=== PATIENT | male | born 1955 | race Hispanic/Latino ===

== ENCOUNTER 2023-12-27 05:54 | Day surgery (SDC) | payer MEDICARE ==
[2023-12-25 12:11] LABS: BASOPHILS # (AUTO) 0.01 K/uL (0.00-0.20); BASOPHILS % (AUTO) 0.2 % (0.0-5.0); EOSINOPHILS # (AUTO) 0.07 K/uL (0.00-0.70); EOSINOPHILS % (AUTO) 1.5 % (0.0-8.0); HEMATOCRIT 39.2 % (42-54); IMMATURE GRANULOCYTE ABSOLUTE 0.02 K/uL (0-1); LYMPHOCYTES # (AUTO) 0.9 K/uL (1.0-4.8); LYMPHOCYTES % (AUTO) 19.7 % (21.0-51.0); MEAN CORPUSCULAR HEMOGLOBIN 30.5 pg (27.0-33.0); MEAN CORPUSCULAR HGB CONC 34.2 g/dL (32.0-36.0); MEAN CORPUSCULAR VOLUME 89.1 fL (79-99); MONOCYTES # (AUTO) 0.4 K/uL (0.1-1.0); MONOCYTES % (AUTO) 7.9 % (3.0-13.0); NEUTROPHILS # (AUTO) 3.4 K/uL (1.8-7.7); NEUTROPHILS % (AUTO) 70.3 % (40.0-77.0); PLATELET COUNT (AUTO) 222 K/uL (130-400); RED CELL DISTRIBUTION WIDTH 13.8 % (11.0-15.5); WHITE BLOOD COUNT (AUTO) 4.8 K/uL (4.8-10.8)
[2023-12-25 12:19] VITALS: BP 117/70; PULSE 60; RESP 18
[2023-12-25 12:21] LABS: INR <= 0.93 (0.85-1.15); PROTHROMBIN TIME 10.8 SEC (9.6-11.6)
[2023-12-25 12:22] LABS: PARTIAL THROMBOPLASTIN TIME 32.9 SEC (26.3-35.5)
[2023-12-25 12:32] LABS: APPEARANCE,URINE CLEAR (CLEAR); BILIRUBIN,URINE NEGATIVE (NEGATIVE); COLOR,URINE LIGHT-YELLOW (YELLOW); GLUCOSE, URINE (UA) NEGATIVE (NEGATIVE); KETONES,URINE NEGATIVE (NEGATIVE); LEUKOCYTE ESTERASE ,URINE NEGATIVE Leu/uL (NEGATIVE); NITRATE,URINE NEGATIVE (NEGATIVE); OCCULT BLOOD,URINE NEGATIVE (NEGATIVE); PH,URINE 5.5 (5.0-8.0); PROTEIN,URINE NEGATIVE (NEGATIVE); UROBILINOGEN,URINE 0.2 mg/dL (0.2-1.0)
[2023-12-25 12:33] LABS: B-TYPE NATRIURETIC PEPTIDE 69 pg/mL (0-100)
[2023-12-25 12:34] LABS: ADD UA MICROSCOPIC NO
[2023-12-25 13:02] LABS: CREATININE 1.4 mg/dL (0.5-1.5); POTASSIUM 4.8 mmol/L (3.5-5.1)
[~2023-12-27] VITALS: Ht 175.3 cm; Wt 81.7 kg
[2023-12-27] VITALS (11 sets, daily range): BP systolic 91–127; BP diastolic 58–78; PULSE 56–62; RESP 15–17
[~2023-12-27 05:54] MED LIST: AEC81 PO; ATOR40TA69 PO; LISI5TAB21 PO; METO25TA6 PO; RANO10005 PO; SILD50TA PO; [UNRECOGNIZED DRUG - OTHER] PO
[2023-12-27] MEDS: 0.9%NACL 1000ML 1,000 ML IV ONE (07:41)
[2023-12-27] MEDS ORDERED: LIDOCAINE HCL 400MG/20ML VIAL ONE (08:04)
[2023-12-27] MEDS ORDERED: MIDAZOLAM HCL 1 MG/ML 2ML VIAL ONE ×3 (08:05→10:40)
[2023-12-27] MEDS ORDERED: NICARDIPINE 25MG INJ IV ONE (08:05)
[2023-12-27] MEDS ORDERED: VERAPAMIL HCL 2.5 MG/ML VIAL ONE (08:05)
[2023-12-27] MEDS ORDERED: FENTANYL CITRATE PF 50 MCG/1 ML 2ML VIAL ONE ×2 (08:05→10:40)
[2023-12-27] MEDS ORDERED: HEPARIN 10,000 UNIT/10ML (1,000 UNIT/ML) VIAL ONE (08:06)
[2023-12-27] MEDS ORDERED: IOHEXOL-350 50ML VIAL IV ONE (08:06)
[2023-12-27] MEDS ORDERED: IOHEXOL-350 75 ML VIAL IV ONE ×4 (08:06→11:01)
[2023-12-27] MEDS ORDERED: NITROGLYCERIN 50MG VIAL ONE (08:37)
[2023-12-27] MEDS ORDERED: ASPIRIN 325MG EC TAB PO ONE (10:55)
[2023-12-27] MEDS ORDERED: PRASUGREL HCL 10 MG TABLET ONE (10:55)
[2023-12-27] MEDS ORDERED: 0.9%NACL 1000ML 1,000 ML IV SCH (12:00)
== END 2023-12-27 16:05 | disposition home or self-care (01) ==
LOC: DAH 05:54
PROVIDERS: ATTEND Internal Medicine Cardiovascular Disease
DX: I25.112 Atherosclerotic heart disease of native coronary artery with refractory angina pectoris (principal); I25.82 Chronic total occlusion of coronary artery; I10 Essential (primary) hypertension; M10.9 Gout, unspecified; E78.5 Hyperlipidemia, unspecified; I25.2 Old myocardial infarction; Z72.89 Other problems related to lifestyle; Z95.5 Presence of coronary angioplasty implant and graft; Z79.899 Other long term (current) drug therapy; Z98.890 Other specified postprocedural states; Z79.01 Long term (current) use of anticoagulants; Z79.82 Long term (current) use of aspirin
CPT/HCPCS: 80048; 83880; 85025; 85610; 85730; 81003; 36415; 71045; 93005; 93458; 85347 ×3; C9607; C1887 ×3; C1769 ×3; C1874 ×3; C1894; A4649; C1725; J3010; J3490 ×3; J7030 ×2; J1644 ×3; J2250 ×2; A4215; A4222; A4221; A4663; A4216; A6206; A4606; Q9967 ×5; A4223 ×3; 96360; 96361; 99156; 99157